=== PATIENT | male | born 1960 | race Hispanic/Latino ===

== ENCOUNTER 2022-07-21 02:34 | Emergency (ER) | payer OTHER ==
[2022-07-21] MEDS ORDERED: Ondansetron PF 4 MG/2 ML Vial ONE (02:56)
[2022-07-21] MEDS ORDERED: Morphine 4 MG/ML VIAL ONE (02:56)
[2022-07-21 03:01] LABS: #Basophils 0.1 10x3/uL (0.0-0.2); #Eosinphils 0.3 10x3/uL (0.0-0.5); #Monocytes 0.9 10x3/uL (0.0-1.1); #Neutrophils 3.2 10x3/uL (1.5-8.4); %Eosinophils 3.9 % (0.0-6.0); %Lymphocytes 35.9 % (18.0-47.0); %Monocytes 12.5 % (0.0-10.0); %Neutrophils 46.4 % (40.0-75.0); Hemoglobin 10.1 g/dL (13.5-17.5); Mean Corpuscular HGB CONC 31.6 g/dL (32.0-36.0); Mean Corpuscular Hemoglobin 23.7 pg (27.0-33.0); Mean Corpuscular Volume 75.1 fl (81.2-95.1); Mean Platelet Volume 11.4 fl (7.4-10.4); Platelet Count 179 10x3/uL (150-450); Red Blood Cell (RBC) Count 4.26 10x6/uL (4.32-5.72)
[2022-07-21 03:15] LABS: ALT (SGPT) 31 U/L (8-55); AST (SGOT) 14 U/L (5-34); Albumin 3.8 g/dL (3.4-4.8); Alkaline Phosphatase 114 U/L (40-110); Anion Gap 14 mmol/L (10-20); BUN (Urea Nitrogen) 12 mg/dL (8.4-25.7); Bilirubin, Total 0.3 mg/dL (0.2-1.2); Calc. Creatinine Clearance 0 mL/min (70-130); Calcium 8.8 mg/dL (7.8-10.44); Carbon Dioxide 23 mmol/L (23-31); Chloride 100 mmol/L (98-107); Estimated GFR 87; Globulin 3.1 g/dL (2.4-3.5); Glucose 323 mg/dL (80-115); Lipase 73 U/L (8-78); Potassium 4.2 mmol/L (3.5-5.1); Protein, Total 6.9 g/dL (5.8-8.1); Sodium 133 mmol/L (136-145)
[2022-07-21 06:18] LABS: Troponin I 0.014 ng/mL (< 0.028)
== END 2022-07-21 06:35 | disposition home or self-care (01) ==
LOC: CSHERS 02:34 → EEVIPCON 02:34 → CSHERS 06:35
DX: R07.89 Other chest pain (principal); E11.9 Type 2 diabetes mellitus without complications; E78.5 Hyperlipidemia, unspecified; K21.9 Gastro-esophageal reflux disease without esophagitis; Z79.899 Other long term (current) drug therapy
CPT/HCPCS: 36415; 71045; 80053; 83690; 84484; 85025; 93005; 96374; 96375; J2270; J2405

== ENCOUNTER 2022-12-03 02:27 | Emergency (ER) | payer OTHER ==
[2022-12-03 02:56] LABS: #Basophils 0.1 10x3/uL (0.0-0.2); #Eosinphils 0.2 10x3/uL (0.0-0.5); #Monocytes 0.8 10x3/uL (0.0-1.1); #Neutrophils 3.5 10x3/uL (1.5-8.4); %Basophils 1.1 % (0.0-2.0); %Eosinophils 3.4 % (0.0-6.0); %Lymphocytes 33.3 % (18.0-47.0); %Monocytes 11.8 % (0.0-10.0); %Neutrophils 49.7 % (40.0-75.0); Hematocrit 30.7 % (38.8-50.0); Hemoglobin 10.1 g/dL (13.5-17.5); Mean Corpuscular HGB CONC 32.9 g/dL (32.0-36.0); Mean Corpuscular Hemoglobin 23.3 pg (27.0-33.0); Mean Corpuscular Volume 70.9 fl (81.2-95.1); Platelet Count 190 10x3/uL (150-450); Red Blood Cell (RBC) Count 4.33 10x6/uL (4.32-5.72)
[2022-12-03 03:09] LABS: ALT (SGPT) 57 U/L (8-55); AST (SGOT) 19 U/L (5-34); Albumin 4.1 g/dL (3.4-4.8); Alkaline Phosphatase 109 U/L (40-110); Anion Gap 13 mmol/L (10-20); BUN (Urea Nitrogen) 8 mg/dL (8.4-25.7); Bilirubin, Total 0.2 mg/dL (0.2-1.2); Calc. Creatinine Clearance 0 mL/min (70-130); Calcium 8.6 mg/dL (7.8-10.44); Carbon Dioxide 23 mmol/L (23-31); Chloride 89 mmol/L (98-107); Estimated GFR 99; Globulin 3.1 g/dL (2.4-3.5); Glucose 144 mg/dL (80-115); Potassium 4.2 mmol/L (3.5-5.1); Protein, Total 7.2 g/dL (5.8-8.1); Sodium 121 mmol/L (136-145)
[2022-12-03 03:15] LABS: Troponin I Less than 0.010 ng/mL (< 0.028)
[2022-12-03 03:23] LABS: Elliptocytes SLIGHT = 2-5 cells (100X) (0-1/hpf); Hypochromia SLIGHT = 6-15 cells (100X) (0-5/hpf); Microcytosis SLIGHT = 6-15 cells (100X) (0-5/hpf); Platelet Adequacy Comment Appears Adequate
[2022-12-03] MEDS ORDERED: Albuterol 2.5 MG/0.5 ML NEB ONE (03:31)
[2022-12-03] MEDS ORDERED: Ipratropium Bromide 2.5 ml Neb ONE (03:31)
[2022-12-03] MEDS ORDERED: Acetaminophen 500 MG TAB ONE (05:15)
[2022-12-03 06:29] LABS: Troponin I Less than 0.010 ng/mL (< 0.028)
== END 2022-12-03 06:45 ==
LOC: CSHERS 02:27
DX: R07.89 Other chest pain (principal); I25.10 Atherosclerotic heart disease of native coronary artery without angina pectoris; E11.9 Type 2 diabetes mellitus without complications; I25.2 Old myocardial infarction; Z79.899 Other long term (current) drug therapy; Z79.82 Long term (current) use of aspirin; Z79.4 Long term (current) use of insulin; Z79.84 Long term (current) use of oral hypoglycemic drugs
CPT/HCPCS: 36415; 71045; 80053; 83690; 84484; 85025; 93005; 94640; 94760; J7611

== ENCOUNTER 2023-02-12 07:32 | Inpatient (IN) | payer OTHER ==
[2023-02-12] MEDS ORDERED: Dicyclomine 20 MG TAB ONE (07:57)
[2023-02-12 08:13] LABS: #Basophils 0.1 10x3/uL (0.0-0.2); #Eosinphils 0.2 10x3/uL (0.0-0.5); #Monocytes 1.2 10x3/uL (0.0-1.1); #Neutrophils 8.3 10x3/uL (1.5-8.4); %Basophils 0.5 % (0.0-2.0); %Eosinophils 1.9 % (0.0-6.0); %Lymphocytes 15.2 % (18.0-47.0); %Monocytes 10.4 % (0.0-10.0); %Neutrophils 71.7 % (40.0-75.0); Hematocrit 39.8 % (38.8-50.0); Hemoglobin 13.4 g/dL (13.5-17.5); Mean Corpuscular HGB CONC 33.7 g/dL (32.0-36.0); Mean Corpuscular Volume 80.2 fl (81.2-95.1); Mean Platelet Volume 11.5 fl (7.4-10.4); Platelet Count 207 10x3/uL (150-450); RBC Distribution Width 16.5 % (11.5-14.5); Red Blood Cell (RBC) Count 4.96 10x6/uL (4.32-5.72); White Blood Cell (WBC) Count 11.6 10x3/uL (3.5-10.5)
[2023-02-12 08:31] LABS: ALT (SGPT) 27 U/L (8-55); AST (SGOT) 21 U/L (5-34); Albumin 4.2 g/dL (3.4-4.8); Alkaline Phosphatase 106 U/L (40-110); Anion Gap 15 mmol/L (10-20); BUN (Urea Nitrogen) 8 mg/dL (8.4-25.7); Bilirubin, Total 0.5 mg/dL (0.2-1.2); Calc. Creatinine Clearance 0 mL/min (70-130); Calcium 9.4 mg/dL (7.8-10.44); Carbon Dioxide 23 mmol/L (23-31); Chloride 101 mmol/L (98-107); Estimated GFR 96; Globulin 3.8 g/dL (2.4-3.5); Glucose 247 mg/dL (80-115); Lipase 40 U/L (8-78); Potassium 4.2 mmol/L (3.5-5.1); Sodium 135 mmol/L (136-145)
[2023-02-12] MEDS ORDERED: Iopamidol 300 61% 100 ML VIAL FS ONE (09:08)
[2023-02-12] MEDS ORDERED: Ondansetron PF 4 MG/2 ML Vial ONE (09:39)
[2023-02-12] MEDS ORDERED: Morphine 4 MG/ML VIAL ONE (09:39)
[2023-02-12] MEDS ORDERED: Piperacillin/Tazobactam 3.375 GM VIAL ONE (11:32)
[2023-02-12] MEDS ORDERED: hydrALAZINE 20 MG/ML VIAL SLOW IVP PRN (12:59)
[2023-02-12] MEDS ORDERED: Acetaminophen 325 MG TAB PO PRN (13:02)
[2023-02-12] MEDS ORDERED: Ondansetron PF 4 MG/2 ML Vial IVP PRN (13:02)
[2023-02-12] MEDS ORDERED: Dextrose 50% Abboject 50 ML SYRINGE SLOW IVP PRN (13:04)
[2023-02-12] MEDS ORDERED: Dextrose 5% in Water 1,000 ML IV PRN (13:04)
[2023-02-12] MEDS ORDERED: Glucagon 1 MG/ML KIT IM PRN (13:04)
[2023-02-12] MEDS: Morphine 4 MG/ML VIAL SLOW IVP PRN ×2 (18:31→23:06)
[2023-02-12 21:58] VITALS: BMI 34.4
[2023-02-12] MEDS: HumaLOG 300 UNITS/3 ML VIAL SC PRN (22:08)
[2023-02-13] MEDS: Morphine 4 MG/ML VIAL SLOW IVP PRN ×4 (04:15→23:22)
[2023-02-13 04:52] LABS: #Basophils 0.1 10x3/uL (0.0-0.2); #Eosinphils 0.3 10x3/uL (0.0-0.5); #Monocytes 1.3 10x3/uL (0.0-1.1); #Neutrophils 5.9 10x3/uL (1.5-8.4); %Basophils 0.5 % (0.0-2.0); %Eosinophils 2.7 % (0.0-6.0); %Monocytes 13.3 % (0.0-10.0); %Neutrophils 59.1 % (40.0-75.0); Hematocrit 40.7 % (38.8-50.0); Hemoglobin 13.3 g/dL (13.5-17.5); Mean Corpuscular HGB CONC 32.7 g/dL (32.0-36.0); Mean Corpuscular Hemoglobin 26.8 pg (27.0-33.0); Mean Corpuscular Volume 82.1 fl (81.2-95.1); Mean Platelet Volume 11.7 fl (7.4-10.4); Platelet Count 218 10x3/uL (150-450); RBC Distribution Width 16.7 % (11.5-14.5); Red Blood Cell (RBC) Count 4.96 10x6/uL (4.32-5.72)
[2023-02-13 05:02] LABS: Anion Gap 13 mmol/L (10-20); BUN (Urea Nitrogen) 11 mg/dL (8.4-25.7); Calc. Creatinine Clearance 116 mL/min (70-130); Calcium 9.4 mg/dL (7.8-10.44); Carbon Dioxide 27 mmol/L (23-31); Chloride 99 mmol/L (98-107); Estimated GFR 94; Glucose 191 mg/dL (80-115); Sodium 135 mmol/L (136-145)
[2023-02-13] MEDS ORDERED: Ciprofloxacin Lactate/D5W 400 MG in Premix 1 BAG IVPB SCH (09:00)
[2023-02-13] MEDS ORDERED: metroNIDAZOLE 500 MG in Premix 1 BAG IVPB SCH (09:00)
[2023-02-13] MEDS ORDERED: Piperacillin/Tazobactam 3.375 GM in Sodium Chloride 0.9% 100 ML IVPB SCH ×2 (09:00→12:30)
[2023-02-13] MEDS ORDERED: Dexamethasone 4 mg/ml Vial ONE (13:30)
[2023-02-13] MEDS ORDERED: Lidocaine 2% PF 5 ML VIAL ONE (13:30)
[2023-02-13] MEDS ORDERED: PROPOFOL 20 ML ONE (13:30)
[2023-02-13] MEDS ORDERED: Rocuronium Bromide 10 MG/ML (10ML VIAL) ONE (13:30)
[2023-02-13] MEDS: Piperacillin/Tazobactam 3.375 GM in Sodium Chloride 0.9% 100 ML IVPB SCH ×2 (15:10→23:23)
[2023-02-13] MEDS: HumaLOG 300 UNITS/3 ML VIAL SC PRN ×2 (16:33→23:36)
[2023-02-13] MEDS: Mometasone 100 MCG/PUFF (1 INHALER) INH SCH (19:32)
[2023-02-13] MEDS: Ferrous Sulfate 325 MG TAB PO SCH (21:28)
[2023-02-13] MEDS: Atorvastatin Calcium 40 MG TAB PO SCH (21:28)
[2023-02-13] MEDS: Terazosin HCl 1 MG CAP PO SCH (21:29)
[2023-02-13] MEDS: Aripiprazole 10 MG TAB PO SCH (21:29)
[2023-02-13] MEDS ORDERED: Famotidine/PF 20 mg/2ml Vial SLOW IVP SCH (21:45)
[2023-02-14 04:44] LABS: #Eosinphils 0.3 10x3/uL (0.0-0.5); #Neutrophils 5.3 10x3/uL (1.5-8.4); %Basophils 0.5 % (0.0-2.0); %Eosinophils 3.8 % (0.0-6.0); %Lymphocytes 22.9 % (18.0-47.0); %Monocytes 11.8 % (0.0-10.0); %Neutrophils 60.5 % (40.0-75.0); Hematocrit 38.3 % (38.8-50.0); Hemoglobin 12.7 g/dL (13.5-17.5); Mean Corpuscular HGB CONC 33.2 g/dL (32.0-36.0); Mean Corpuscular Volume 81.3 fl (81.2-95.1); Mean Platelet Volume 10.9 fl (7.4-10.4); Platelet Count 205 10x3/uL (150-450); RBC Distribution Width 16.1 % (11.5-14.5); Red Blood Cell (RBC) Count 4.71 10x6/uL (4.32-5.72); White Blood Cell (WBC) Count 8.8 10x3/uL (3.5-10.5)
[2023-02-14 04:51] LABS: Anion Gap 13 mmol/L (10-20); BUN (Urea Nitrogen) 12 mg/dL (8.4-25.7); Calc. Creatinine Clearance 114 mL/min (70-130); Calcium 9.1 mg/dL (7.8-10.44); Carbon Dioxide 25 mmol/L (23-31); Chloride 98 mmol/L (98-107); Estimated GFR 93; Glucose 305 mg/dL (80-115); Potassium 3.9 mmol/L (3.5-5.1); Sodium 132 mmol/L (136-145)
[2023-02-14] MEDS: Piperacillin/Tazobactam 3.375 GM in Sodium Chloride 0.9% 100 ML IVPB SCH ×3 (06:21→21:40)
[2023-02-14] MEDS: Morphine 4 MG/ML VIAL SLOW IVP PRN ×2 (06:30→11:04)
[2023-02-14] MEDS: HumaLOG 300 UNITS/3 ML VIAL SC PRN ×3 (06:31→17:45)
[2023-02-14] MEDS: Mometasone 100 MCG/PUFF (1 INHALER) INH SCH ×2 (06:45→20:50)
[2023-02-14] MEDS: Ferrous Sulfate 325 MG TAB PO SCH ×2 (09:36→21:38)
[2023-02-14] MEDS: Citalopram 20 MG TAB PO SCH (09:36)
[2023-02-14] MEDS: Lisinopril 20 MG TAB PO SCH (09:36)
[2023-02-14] MEDS: Amlodipine 10 MG TAB PO SCH (09:36)
[2023-02-14] MEDS: Aspirin 81 mg Enteric Coated Tablet PO SCH (09:38)
[2023-02-14] MEDS: Metoprolol Tartrate 50 MG TAB PO SCH (09:38)
[2023-02-14] MEDS ORDERED: Bupivacaine 0.25% HCL 30 ML VIAL ONE (12:39)
[2023-02-14] MEDS ORDERED: fentaNYL 50 mcg/mL 1 mL Vial ONE (13:58)
[2023-02-14] MEDS ORDERED: PROPOFOL 20 ML ONE ×2 (13:58→14:15)
[2023-02-14] MEDS ORDERED: Rocuronium Bromide 10 MG/ML (10ML VIAL) ONE (13:59)
[2023-02-14] MEDS ORDERED: Lidocaine 1% PF 5 ML VIAL ONE (13:59)
[2023-02-14] MEDS ORDERED: Dexmedetomidine 200 MCG/2 ML VIAL ONE (14:15)
[2023-02-14] MEDS ORDERED: ePHEDrine Sulfate 50 MG/10 ML VIAL ONE (14:32)
[2023-02-14] MEDS ORDERED: Glycopyrrolate 0.2 MG/ML 5 ML SYRINGE ONE (14:49)
[2023-02-14] MEDS ORDERED: SUGAMMADEX SODIUM 200 MG/2 ML VIAL ONE (15:00)
[2023-02-14] MEDS ORDERED: Albuterol HFA (OR) 200 PUFF INH ONE (15:04)
[2023-02-14] MEDS ORDERED: HYDROcodone/Acetaminophen 5/325 mg Tablet PO PRN (15:13)
[2023-02-14] MEDS ORDERED: Acetaminophen 325 MG TAB PO PRN (15:13)
[2023-02-14] MEDS ORDERED: Morphine 4 MG/ML VIAL SLOW IVP PRN (15:13)
[2023-02-14] MEDS ORDERED: Morphine 2 MG/ML VIAL SLOW IVP PRN (15:19)
[2023-02-14] MEDS: Aripiprazole 10 MG TAB PO SCH (21:39)
[2023-02-14] MEDS: Terazosin HCl 1 MG CAP PO SCH (21:39)
[2023-02-14] MEDS: Atorvastatin Calcium 40 MG TAB PO SCH (21:39)
[2023-02-14] MEDS: HYDROcodone/Acetaminophen 5/325 mg Tablet PO PRN (21:42)
[2023-02-15 03:50] LABS: #Eosinphils 0.2 10x3/uL (0.0-0.5); #Monocytes 1.2 10x3/uL (0.0-1.1); #Neutrophils 6.6 10x3/uL (1.5-8.4); %Basophils 0.3 % (0.0-2.0); %Lymphocytes 18.5 % (18.0-47.0); %Monocytes 12.4 % (0.0-10.0); %Neutrophils 66.5 % (40.0-75.0); Hematocrit 37.3 % (38.8-50.0); Hemoglobin 12.2 g/dL (13.5-17.5); Mean Corpuscular HGB CONC 32.7 g/dL (32.0-36.0); Mean Corpuscular Hemoglobin 27.1 pg (27.0-33.0); Mean Corpuscular Volume 82.7 fl (81.2-95.1); Mean Platelet Volume 11.5 fl (7.4-10.4); Platelet Count 215 10x3/uL (150-450); RBC Distribution Width 16.2 % (11.5-14.5); Red Blood Cell (RBC) Count 4.51 10x6/uL (4.32-5.72); White Blood Cell (WBC) Count 9.9 10x3/uL (3.5-10.5)
[2023-02-15 04:04] LABS: Anion Gap 13 mmol/L (10-20); BUN (Urea Nitrogen) 10 mg/dL (8.4-25.7); Calc. Creatinine Clearance 111 mL/min (70-130); Calcium 8.9 mg/dL (7.8-10.44); Carbon Dioxide 26 mmol/L (23-31); Chloride 97 mmol/L (98-107); Estimated GFR 89; Glucose 256 mg/dL (80-115); Potassium 4.1 mmol/L (3.5-5.1); Sodium 132 mmol/L (136-145)
[2023-02-15] MEDS: HYDROcodone/Acetaminophen 5/325 mg Tablet PO PRN ×2 (05:08→12:12)
[2023-02-15] MEDS: HumaLOG 300 UNITS/3 ML VIAL SC PRN ×2 (05:11→12:10)
[2023-02-15] MEDS: Piperacillin/Tazobactam 3.375 GM in Sodium Chloride 0.9% 100 ML IVPB SCH ×2 (05:12→16:10)
[2023-02-15] MEDS: Mometasone 100 MCG/PUFF (1 INHALER) INH SCH ×2 (06:30→19:25)
[2023-02-15] MEDS: Aspirin 81 mg Enteric Coated Tablet PO SCH (08:43)
[2023-02-15] MEDS: Metoprolol Tartrate 50 MG TAB PO SCH (08:44)
[2023-02-15] MEDS: Citalopram 20 MG TAB PO SCH (08:44)
[2023-02-15] MEDS: Ferrous Sulfate 325 MG TAB PO SCH (08:44)
[2023-02-15] MEDS: Amlodipine 10 MG TAB PO SCH (08:44)
[2023-02-15] MEDS: Lisinopril 20 MG TAB PO SCH (08:45)
[2023-02-15] MEDS ORDERED: Non-Formulary Medication 1 EACH (Ipratropium 200 PUFF Inh) PO PRN (09:03)
[2023-02-15] MEDS ORDERED: Ipratropium/Albuterol 3 ML NEB NEB PRN (09:09)
[2023-02-15] MEDS ORDERED: Senokot 8.6 MG TAB PO SCH (10:00)
[2023-02-15] MEDS ORDERED: metFORMIN 500 MG TAB PO SCH ×2 (10:00→17:00)
[2023-02-15 17:24] VITALS: BP 114/63; TEMP 99
== END 2023-02-15 19:47 | DRG 418 ==
LOC: EEVIPCON 07:32 → CSHERS 07:32 → CSHERHOLD 12:19 → CSHTELE 17:28 → OBSVTOIN 02-14 15:19
PROVIDERS: ADMIT Internal Medicine; ATTEND Internal Medicine
PROC: 0FT44ZZ Resection of Gallbladder, Percutaneous Endoscopic Approach (ICD-10-PCS; principal; 2023-02-14)
DX: K81.0 Acute cholecystitis (principal); K82.1 Hydrops of gallbladder; I25.10 Atherosclerotic heart disease of native coronary artery without angina pectoris; I10 Essential (primary) hypertension; E78.5 Hyperlipidemia, unspecified; K74.00 Hepatic fibrosis, unspecified; E66.9 Obesity, unspecified; J44.9 Chronic obstructive pulmonary disease, unspecified; E11.9 Type 2 diabetes mellitus without complications; F32.A Depression, unspecified; Z95.5 Presence of coronary angioplasty implant and graft; Z98.890 Other specified postprocedural states; Z95.1 Presence of aortocoronary bypass graft; Z82.49 Family history of ischemic heart disease and other diseases of the circulatory system; Z83.3 Family history of diabetes mellitus; Z87.891 Personal history of nicotine dependence; Z68.34 Body mass index [BMI] 34.0-34.9, adult
CPT/HCPCS: 36415; 36416; 74177; 76705; 78227; 80048; 80053; 83690; 85025; 88304; 93005; 93010; 93306; 94660; 94664; 94760; 94762; 96374; 96375; A9537; C1889; J1100; J1815; J2001; J2270; J2405; J2543; J2704; J3010; J3490; J7611; Q9967; S0020; S0028

== ENCOUNTER 2023-02-22 14:34 | Emergency (ER) | payer OTHER ==
[~2023-02-22 14:34] MED LIST: Iopamidol 300 61% 100 ML VIAL FS ONE
[2023-02-22 15:26] LABS: Bilirubin Neg (Negative); Blood, Urine Negative (Negative); Clarity Clear (Clear); Glucose, Urine (Dipstick) Normal (Negative); Ketone, Urine Negative (Negative); Leukocyte Negative (Negative); Nitrite Negative (Negative); Protein, Urine (Dipstick) Negative (Neg-Trace); Specific Gravity, Urine 1.005 (1.005-1.030); Urobilinogen Normal mg/dL (Less than 2)
[2023-02-22 15:44] LABS: Bacteria/HPF 1+ HPF (None Seen); CAUTI Indications for Culture Pelvic or flank pain; RBC/HPF 0-3 HPF (0-3); Squamous Epithelial 0-3 HPF (0-3); WBC/HPF 0-3 HPF (0-3)
[2023-02-22 15:46] LABS: #Basophils 0.1 10x3/uL (0.0-0.2); #Eosinphils 0.4 10x3/uL (0.0-0.5); #Monocytes 0.6 10x3/uL (0.0-1.1); #Neutrophils 5.8 10x3/uL (1.5-8.4); %Basophils 0.7 % (0.0-2.0); %Eosinophils 4.7 % (0.0-6.0); %Lymphocytes 23.3 % (18.0-47.0); %Monocytes 6.8 % (0.0-10.0); %Neutrophils 64.1 % (40.0-75.0); Hematocrit 37.3 % (38.8-50.0); Hemoglobin 12.4 g/dL (13.5-17.5); Mean Corpuscular HGB CONC 33.2 g/dL (32.0-36.0); Mean Corpuscular Hemoglobin 27.1 pg (27.0-33.0); Mean Corpuscular Volume 81.6 fl (81.2-95.1); Mean Platelet Volume 10.8 fl (7.4-10.4); Platelet Count 282 10x3/uL (150-450); RBC Distribution Width 15.7 % (11.5-14.5); Red Blood Cell (RBC) Count 4.57 10x6/uL (4.32-5.72); White Blood Cell (WBC) Count 9.1 10x3/uL (3.5-10.5)
[2023-02-22 15:46] LABS: Urine Culture Reflex No No
[2023-02-22 16:00] LABS: ALT (SGPT) 19 U/L (8-55); Albumin 3.9 g/dL (3.4-4.8); Alkaline Phosphatase 94 U/L (40-110); Anion Gap 14 mmol/L (10-20); BUN (Urea Nitrogen) 11 mg/dL (8.4-25.7); Bilirubin, Total 0.2 mg/dL (0.2-1.2); Calc. Creatinine Clearance 0 mL/min (70-130); Carbon Dioxide 23 mmol/L (23-31); Chloride 105 mmol/L (98-107); Estimated GFR 83; Globulin 4.3 g/dL (2.4-3.5); Glucose 174 mg/dL (80-115); Lipase 62 U/L (8-78); Potassium 4.8 mmol/L (3.5-5.1); Protein, Total 8.2 g/dL (5.8-8.1); Sodium 137 mmol/L (136-145)
[2023-02-22 16:05] LABS: AST (SGOT) 20 U/L (5-34)
[2023-02-22] MEDS ORDERED: Ketorolac Tromethamine 30 MG/ML VIAL ONE (16:24)
== END 2023-02-22 17:07 ==
LOC: CSHERS 14:34
DX: G89.18 Other acute postprocedural pain (principal); R10.33 Periumbilical pain; E11.9 Type 2 diabetes mellitus without complications; I10 Essential (primary) hypertension; I25.10 Atherosclerotic heart disease of native coronary artery without angina pectoris; I25.2 Old myocardial infarction; K21.9 Gastro-esophageal reflux disease without esophagitis; E78.5 Hyperlipidemia, unspecified; J45.909 Unspecified asthma, uncomplicated; Z79.82 Long term (current) use of aspirin; Z79.899 Other long term (current) drug therapy; Z79.84 Long term (current) use of oral hypoglycemic drugs; Z79.4 Long term (current) use of insulin
CPT/HCPCS: 36415; 74177; 80053; 81001; 83690; 85025; 93005; J1885; Q9967

== ENCOUNTER 2023-07-08 22:08 | Emergency (ER) | payer OTHER ==
[2023-07-08 23:27] LABS: #Basophils 0.06 10x3/uL (0.0-0.2); #Eosinphils 0.24 10x3/uL (0.0-0.5); #Neutrophils 4.93 10x3/uL (1.5-8.4); %Basophils 0.6 % (0.0-2.0); %Eosinophils 2.6 % (0.0-6.0); %Lymphocytes 33.3 % (18.0-47.0); %Monocytes 9.7 % (0.0-10.0); %Neutrophils 53.4 % (40.0-75.0); Hemoglobin 13.7 g/dL (13.5-17.5); Mean Corpuscular HGB CONC 35.1 g/dL (32.0-36.0); Mean Corpuscular Hemoglobin 29.9 pg (27.0-33.0); Mean Corpuscular Volume 85.2 fl (81.2-95.1); Mean Platelet Volume 11.6 fl (7.4-10.4); Platelet Count 175 10x3/uL (150-450); RBC Distribution Width 11.9 % (11.5-14.5); Red Blood Cell (RBC) Count 4.58 10x6/uL (4.32-5.72); White Blood Cell (WBC) Count 9.3 10x3/uL (3.5-10.5)
[2023-07-08 23:43] LABS: ALT (SGPT) 38 U/L (8-55); AST (SGOT) 21 U/L (5-34); Alkaline Phosphatase 108 U/L (40-110); Anion Gap 12 mmol/L (10-20); BUN (Urea Nitrogen) 16 mg/dL (8.4-25.7); Bilirubin, Total 0.5 mg/dL (0.2-1.2); Calc. Creatinine Clearance 0 mL/min (70-130); Calcium 9.3 mg/dL (7.8-10.44); Carbon Dioxide 24 mmol/L (23-31); Chloride 99 mmol/L (98-107); Estimated GFR 75; Globulin 3.6 g/dL (2.4-3.5); Glucose 201 mg/dL (80-115); Lipase 67 U/L (8-78); Protein, Total 7.6 g/dL (5.8-8.1); Sodium 131 mmol/L (136-145)
[2023-07-08 23:49] LABS: Troponin I Less than 0.010 ng/mL (< 0.028)
[2023-07-09] MEDS ORDERED: fentaNYL 50 mcg/mL 1 mL Vial ONE (00:51)
== END 2023-07-09 04:09 | disposition short-term general hospital (02) ==
LOC: CSHERS 22:08
DX: R07.9 Chest pain, unspecified (principal); R00.1 Bradycardia, unspecified; E11.9 Type 2 diabetes mellitus without complications; E66.9 Obesity, unspecified; I25.10 Atherosclerotic heart disease of native coronary artery without angina pectoris; Z79.899 Other long term (current) drug therapy; Z79.4 Long term (current) use of insulin
CPT/HCPCS: 71045; 80053; 83605; 83690; 83880; 84484; 85025; 93005; 96374; J3010